=== PATIENT | male | born 1990 | race Two or more races ===

== ENCOUNTER → 2021-11-14 | Outpatient (CLI) | payer BC ==
--- NOTE | 2021-11-15 05:11 | MR ---
EXAMINATION TYPE: MR femur/thigh RT wo con DATE OF EXAM: 11/14/2021 COMPARISON: None HISTORY: Rt posterior upper thigh injury, pain radiates down to knee. Multiplanar multiecho imaging of the right femur and right thigh with no contrast. Muscle bundles of the right and left thigh are fairly symmetric. No pathologic fluid collection. The right and left femur show normal signal pattern. No evidence of a fracture. No focal bone destruction . No evidence of avascular necrosis of the hip joint. No evidence of soft tissue mass. Subcutaneous t issues appear symmetric and normal. Limited visualization of the pelvis shows no free fluid. Bladder distends smoothly. IMPRESSION: Negative MR scan of the right femur and right thigh.
== END | disposition home or self-care (01) ==
LOC: RADMRIMAIN 21:50
PROVIDERS: ATTEND Family Medicine
DX: S76.319A Strain of muscle, fascia and tendon of the posterior muscle group at thigh level, unspecified thigh, initial encounter (principal); X58.XXXA Exposure to other specified factors, initial encounter